=== PATIENT | female | born 1990 | race Caucasian/White ===

== ENCOUNTER → 2020-07-24 14:30 | Observation (INO) ==
[2020-07-24 13:44] LABS: Bilirubin,Urine Negative (Negative); Blood,Urine Negative (Negative); Clarity,Urine Clear (Clear); Color,Urine Light-Yellow (Yellow); Glucose,Urine (UA) Normal (Normal); Ketones,Urine Negative (Negative); Leukocyte Esterase,Urine Negative (Negative); Nitrite,Urine Negative (Negative); Protein,Urine Negative (Neg-Trace); Specific Gravity,Urine 1.013 (1.010-1.025); Urobilinogen,Urine Normal (Normal)
== END | disposition home or self-care (01) ==
LOC: 1NENULAB
PROVIDERS: ADMIT Obstetrics & Gynecology; ATTEND Obstetrics & Gynecology

== ENCOUNTER 2020-08-18 13:03 | Inpatient (IN) ==
[~2020-08-18 13:03] MED LIST: Famotidine 20 MG/2 ML VIAL IVP PRN; Metoclopramide 10 MG/2 ML VIAL IVP PRN; Naloxone 0.4 MG/ML INJ IVP PRN
[2020-08-18] MEDS ORDERED: Ondansetron 4 MG/2 ML VIAL IVP PRN (13:08)
[2020-08-18] MEDS ORDERED: Lidocaine 1% 20 ML MDV INFILT PRN (13:08)
[2020-08-18] MEDS ORDERED: *HR* FentaNYL (PF) 100 MCG/2 ML VIAL IVP PRN (13:08)
[2020-08-18] MEDS ORDERED: Azithromycin 500 MG in 0.9 % Sodium Chloride 250 ML IVPB PRN (13:08)
[2020-08-18] MEDS ORDERED: Ringers Solution, Lactated 1,000 ML IVC SCH (13:15)
[2020-08-18] MEDS ORDERED: Lidocaine -MPF 1% 2 ML VIAL ONE (13:32)
[2020-08-18] MEDS ORDERED: Oxytocin 20 units/ LR 1000 mL 20 UNIT/1,000 ML BAG IVC SCH ×2 (13:45→23:34)
[2020-08-18] MEDS ORDERED: Epidural Premix (fent/bupiv) 110 ML EP ONE (14:03)
[2020-08-18 14:30] LABS: Basophils % 0.2 %; Eosinophils % 0.3 %; Hematocrit 38.6 % (35.3-44.9); Hemoglobin 12.9 g/dL (11.5-15.4); Immature Granulocytes % 0.5 % (0-4); Lymphocytes # 1.9 K/mcL (0.6-4.6); Lymphocytes % 13.9 %; Mean Corpuscular HGB Conc 33.4 g/dL (31.6-35.5); Mean Corpuscular Hemoglobin 30.9 pg (28.0-33.3); Mean Corpuscular Volume 92.3 fL (83.0-100.0); Mean Platelet Volume 10.6 fL (9.4-12.4); Monocytes # 0.7 K/mcL (0.0-1.3); Monocytes % 4.7 %; Platelet Count 228 K/mcL (140-400); Red Blood Count 4.18 M/mcL (3.82-4.97); Red Cell Distribution Width 12.6 % (11.5-14.5); Segmented Neutrophils % 80.4 %; White Blood Count 13.7 K/mcL (4.3-11.1)
[2020-08-18] MEDS ORDERED: EPHEDrine 50 MG/ML VIAL IVP PRN (14:38)
[2020-08-18] MEDS ORDERED: Epidural Premix (fent/bupiv) 110 ML EP SCH (14:45)
[2020-08-18 15:15] LABS: Amphetamine Screen,Urine Negative ng/mL (Cutoff=1000); Barbiturate Screen,Urine Negative ng/mL (Cutoff=200); Benzodiazepines Screen,Urine Negative ng/mL (Cutoff=200); Cannabinoid Screen,Urine Negative ng/mL (Cutoff = 50); Cocaine Screen,Urine Negative ng/mL (Cutoff= 300); Opiate Screen,Urine Negative ng/mL (Cutoff=300); Phencyclidine Screen,Urine Negative ng/mL (Cutoff=25)
[2020-08-18] MEDS ORDERED: Rho Immune Globulin 1,500 UNIT SYRINGE IM PRN (23:34)
[2020-08-18] MEDS ORDERED: Oxytocin 20 units/ LR 1000 mL 20 UNIT/1,000 ML BAG IVC ONE (23:34)
[2020-08-18] MEDS ORDERED: Benzocaine/Menthol 56 GM AEROSOL SPRAY TP PRN (23:34)
[2020-08-18] MEDS ORDERED: Measles/Mumps/Rubella Vacc 0.5 ML VIAL SQ PRN (23:34)
[2020-08-18] MEDS ORDERED: Acetaminophen 325 MG TABLET PO PRN (23:34)
[2020-08-19] MEDS: Ibuprofen 600 MG TABLET PO PRN ×2 (00:50→07:51)
[2020-08-19 05:52] LABS: Basophils % 0.2 %; Eosinophils % 0.3 %; Hematocrit 36.3 % (35.3-44.9); Hemoglobin 11.9 g/dL (11.5-15.4); Immature Granulocytes % 0.3 % (0-4); Lymphocytes # 2.1 K/mcL (0.6-4.6); Lymphocytes % 17.2 %; Mean Corpuscular HGB Conc 32.8 g/dL (31.6-35.5); Mean Corpuscular Hemoglobin 31.1 pg (28.0-33.3); Mean Corpuscular Volume 94.8 fL (83.0-100.0); Mean Platelet Volume 10.6 fL (9.4-12.4); Monocytes # 0.8 K/mcL (0.0-1.3); Monocytes % 6.5 %; Neutrophils # 9.4 K/mcL (1.6-8.9); Platelet Count 197 K/mcL (140-400); Red Blood Count 3.83 M/mcL (3.82-4.97); Red Cell Distribution Width 12.9 % (11.5-14.5); Segmented Neutrophils % 75.5 %; White Blood Count 12.4 K/mcL (4.3-11.1)
[2020-08-19] MEDS ORDERED: Prenatal Vit/FA 1 EACH TABLET PO SCH (09:00)
[2020-08-19 16:33] VITALS: BP 106/70
== END 2020-08-19 22:15 | disposition home or self-care (01) | DRG 560 ==
LOC: 1NENULAB → 1NENUOBS 08-19 00:38
PROVIDERS: ADMIT Student in an Organized Health Care Education/Training Program; ATTEND Student in an Organized Health Care Education/Training Program